=== PATIENT | female | born 1950 | race Caucasian/White ===

== ENCOUNTER 2016-10-03 14:35 | Emergency (ER) | payer MEDICARE, OTHER ==
[~2016-10-03] VITALS: Ht 165.1 cm; Wt 48.2 kg
[~2016-10-03 14:35] MED LIST: ADVAI250I PO; CITA20TA4 PO; COMBAER INH; LEVO.1 PO; LORA0.5T PO; LORTA5 PO
[2016-10-03 14:45] VITALS: BP 124/94; PULSE 138; RESP 28; TEMP 98.1; O2SAT 90
[2016-10-03 14:48] VITALS: BP 161/99; PULSE 106; RESP 18; TEMP 98.1; O2SAT 97
[2016-10-03] MEDS ORDERED: BUSP10TA PO (15:06)
[2016-10-03] MEDS ORDERED: LORA-373 PO (15:06)
[2016-10-03] MEDS ORDERED: PRED5TAB PO (15:06)
[2016-10-03] MEDS ORDERED: IPRAAER INH (15:06)
[2016-10-03] MEDS ORDERED: ADVA250A INH (15:06)
[2016-10-03] MEDS ORDERED: LEVA500T PO (15:06)
[2016-10-03] MEDS ORDERED: LORA-392 PO (15:15)
--- NOTE | 2016-10-03 15:15 | PD ---
HPI Chief Complaint: Anxiety Time Seen by Provider: 14:48 Travel History International Travel<30 days: No Contact w/Intl Traveler<30days: No Traveled to known affect area: No History of Present Illness HPI This 66-year-old female is complaining of anxiety. She says she has not slept for several days. She had been on 5 mg of lorazepam to 3 times a day. She was recently put on and told to stop her lorazepam. She's been having increased anxiety. She has a history of COPD. She does continue to smoke. She has not had lung for which she is followed by pulmonary. Patient is on prednisone and has been tapering her dose. She has noted easy bruising PFSH Past Medical History Asthma: No Anxiety: Yes Depression: Yes Cancer: No Cardiovascular Problems: No COPD: Yes Diabetes: No Endocrine: Yes Genitourinary: No Hepatitis: Yes (HEP B 20 YEARS AGO) Hiatal Hernia: No Immune Disorder: No Musculoskeletal: No Neurologic: No Psychiatric: No Reproductive: No Respiratory: Yes (EMPHYSEMA) Immunizations Current: No Sleep Apnea: No Thyroid Disease: Yes ?: Not Past Surgical History Abdominal Surgery: No AICD: No Cardiac Surgery: No Endocrine Surgery: No Eye Surgery: No Genitourinary Surgery: No Gynecologic Surgery: No Joint Replacement: No Oral Surgery: No Pacemaker: No Thoracic Surgery: No Tonsillectomy: Yes Other Surgery: Yes Social History Alcohol Use: Yes (OCC) Tobacco Use: Yes (2 - PPD) Substance Use: No Allergies-Medications (Allergen,Severity, Reaction): Coded Allergies: Penicillin (Verified Adverse Reaction, Severe, 01/13/14) Reported Meds & Prescriptions Reported Meds & Active Scripts Active Reported Levaquin (Levofloxacin) 500 Mg Tab 500 Mg PO DAILY Prednisone 5 Mg Tab 5 Mg PO DAILY Combivent Respimat Inh (Ipratropium-Albuterol Inh) 20-100 [facility]/Act Aero 1 Puff INH QID Advair Diskus Inh (Fluticasone-Salmeterol Inh) 250-50 Mcg/Blist Aer 1 Puff INH BID Rinse mouth after use. Buspirone (Buspirone HCl) 10 Mg Tab 10 Mg PO DAILY Lorazepam 0.5 Mg Tab 0.5 Mg PO Q8H PRN Review of Systems General / Constitutional: No: Fever, Chills Eyes: No: Diploplia HENT: No: Headaches Cardiovascular: No: Chest Pain or Discomfort Respiratory: Positive: Shortness of Breath Gastrointestinal: No: Vomiting, Diarrhea Genitourinary: No: Decreased Urinary Output Musculoskeletal: No: Myalgias, Arthralgias Neurologic: No: Weakness Endocrine: No: Heat Intolerance, Cold Intolerance Hematologic/Lymphatic: Positive: Easy Bruising Physical Exam Narrative GENERAL: Well-developed female SKIN: Warm and dry. HEAD: Atraumatic. Normocephalic. EYES: Pupils equal and round. No scleral icterus. No injection or drainage. ENT: No nasal bleeding or discharge. Mucous membranes pink and moist. NECK: Trachea midline. No JVD. CARDIOVASCULAR: Regular rate and rhythm. No murmur appreciated. RESPIRATORY: No accessory muscle use. Diminished breath sounds bilaterally GASTROINTESTINAL: Abdomen soft, non-tender, nondistended. Hepatic and splenic margins not palpable. MUSCULOSKELETAL: No obvious deformities. No clubbing. No cyanosis. No edema. NEUROLOGICAL: Awake and alert. No obvious cranial nerve deficits. Motor grossly within normal limits. Normal speech. PSYCHIATRIC: Appropriate mood and affect; insight and judgment normal. She is anxious Data Data Last Documented VS Vital Signs Date Time Temp Pulse Resp B/P Pulse Ox O2 Delivery O2 Flow Rate FiO2 10/03/16 14:48 98.1 106 18 161/99 97 MDM Medical Decision Making Medical Screen Exam Complete: Yes Emergency Medical Condition: Yes Medical Record Reviewed: Yes Differential Diagnosis Differential includes COPD exacerbation, anxiety, benzodiazepine withdrawal Narrative Course Patient's symptoms appear related to anxiety. They could be exacerbated by withdrawal. The BuSpar will not be effective for several days. I will prescribe some Ativan to use Diagnosis Primary Impression: Anxiety Scripts Lorazepam (Ativan)0.5 Mg Tab0.5 Mg PO Q8H PRN (ANXIETY AND/OR AGITATION) #20 TAB Ref 0 Prov:Roel Kumari MD 10/03/16 Disposition: DISCHARGE HOME Condition: Stable Roel Kumari MD Oct 03, 2016 15:15
== END 2016-10-03 15:28 | disposition home or self-care (01) ==
LOC: PHED 14:35
DX: F41.9 Anxiety disorder, unspecified (principal); F17.210 Nicotine dependence, cigarettes, uncomplicated; J44.9 Chronic obstructive pulmonary disease, unspecified
CPT/HCPCS: 99283

== ENCOUNTER 2017-09-26 08:49 | Day surgery (SDC) | payer OTHER ==
[~2017-09-26] VITALS: Ht 162.6 cm; Wt 42.3 kg
[~2017-09-26 08:49] MED LIST changes: +ADVA250A INH; -ADVAI250I PO; +BUSP10TA PO; -CITA20TA4 PO; -COMBAER INH; +IPRAAER INH; +LEVA500T PO; -LEVO.1 PO; +LORA-392 PO; -LORTA5 PO; +PRED5TAB PO
[2017-09-26 09:01] VITALS: BP 154/105; PULSE 93; RESP 20; TEMP 97.5; O2SAT 96
[2017-09-26] MEDS ORDERED: LEVO100T5 PO (09:15)
[2017-09-26] MEDS ORDERED: SERT-132 PO (09:15)
[2017-09-26] MEDS ORDERED: ASPI-516 CHEW (09:15)
[2017-09-26] MEDS ORDERED: FLUT1INH INH (09:15)
[2017-09-26] MEDS ORDERED: SODIUM CHLOR 0.45% 1000 ML INJ 1,000 ML IV SCH (09:30)
[2017-09-26 09:39] LABS: AUTOMATED NEUTROPHIL # 6.5 TH/MM3 (1.8-7.7); BASOPHIL # 0.1 TH/MM3 (0-0.2); BASOPHIL % 0.9 % (0.0-2.0); EOSINOPHIL # 0.1 TH/MM3 (0-0.4); HEMATOCRIT 37.9 % (35.0-46.0); HEMOGLOBIN 13.7 GM/DL (11.6-15.3); LYMPH % 23.3 % (9.0-44.0); LYMPHOCYTE # 2.3 TH/MM3 (1.0-4.8); MEAN CELL VOLUME 88.3 FL (80.0-100.0); MEAN CORPUSCULAR HEMOGLOBIN 31.9 PG (27.0-34.0); MEAN CORPUSCULAR HGB CONC 36.1 % (32.0-36.0); MEAN PLATELET VOLUME 6.5 FL (7.0-11.0); MONO % 9.8 % (0.0-8.0); PLATELET COUNT 301 TH/MM3 (150-450); RED BLOOD COUNT 4.29 MIL/MM3 (4.00-5.30); RED CELL DISTRIBUTION WIDTH 16.1 % (11.6-17.2)
[2017-09-26 09:51] LABS: PROTHROMBIN TIME - PATIENT 10.4 SEC (9.8-11.6)
[2017-09-26 10:01] LABS: BICARBONATE 28.7 MEQ/L (21.0-32.0); CALCIUM 9.1 MG/DL (8.5-10.1); CREATININE 0.74 MG/DL (0.50-1.00)
[2017-09-26] MEDS ORDERED: RESP: ALBUTEROL 2.5 MG/3 ML NEB (SCH) INH (11:00)
[2017-09-26] MEDS ORDERED: RESP: LIDOCAINE HCL 4% PF 5 ML NEB NEB SCH (11:00)
[2017-09-26] MEDS ORDERED: RESP: ALBUTEROL 2.5 MG/3 ML NEB (PRN) NEB (13:00)
[2017-09-26 13:45] VITALS: BP 128/83; PULSE 73; RESP 20; TEMP 98.5; O2SAT 99
--- NOTE | 2017-09-26 14:03 | RADRPT ---
EXAM DATE/TIME: 09/26/2017 13:32 [facility] COMPARISON: CHEST EXPIRATION ONLY, January 16, 2014, 13:20. CHEST SINGLE AP, January 15, 2014, 14:26. INDICATIONS : Post Bronchoscopy. MEDICAL HISTORY : Asthma. SURGICAL HISTORY : None. ENCOUNTER: Initial ACUITY: 1 day PAIN SCORE: 0/10 LOCATION: Bilateral chest FINDINGS: A single view of the chest demonstrates the lungs to be symmetrically hyperinflated with biapical sca rring basically unchanged from prior. On the left, there is an associated nodular density which is al so stable. On the right, there is a spade shaped density projecting over the area of scarring with th e inferior and lateral borders very sharply marginated and therefore, this may be on the skin surface . Heart size is normal. Osseous structures are intact. No pneumothorax. CONCLUSION: 1. Stable biapical scarring with an associated nodular density on the left which is also stable. This is all superimposed on baseline emphysematous changes. 2. Space shaped density projecting over the right hemithorax may be on the skin surface. Suggest exam ining the patient anteriorly and posteriorly and repeating the chest radiograph for confirmation. Shivam Blackwood MD on September 26, 2017 at 13:55 Board Certified Radiologist. This report was verified electronically.
[2017-09-26] MEDS ORDERED: DO NOT ADM ANY ANTICOAGULANT DRUGS PRN (14:15)
[2017-09-26] MEDS ORDERED: ACETAMINOPHEN 325 MG TAB PO SCH (14:15)
[2017-09-26 15:00] VITALS: BP 124/83; PULSE 74; RESP 17; O2SAT 98
--- NOTE | 2017-09-26 19:24 | EKG ---
Date Performed: 09/26/2017 Time Performed: 09:35:38 PTAGE: 67 years EKG: Sinus rhythm POSSIBLE LEFT ATRIAL ENLARGEMENT INDETERMINATE AXIS POSSIBLE RIGHT VENTRICULAR CONDUCTION DELAY LEFT POSTERIOR FASCICULAR BLOCK MODERATE ST DEPRESSION ABNORMAL ECG Since the prior tracing, there has be en no significant change PREVIOUS TRACING : 06/20/1995 12.03 DOCTOR: Jean-Pierre Cantu Interpretating Date/Time 09/26/2017 19:23:35
--- NOTE | 2017-09-26 20:53 | MP ---
cc: Danny RAMIREZ M.D.[facility] DATE OF SURGERY 09/26/17 PROCEDURE Fiberoptic bronchoscopy with brushings, biopsies, washings. PREOPERATIVE DIAGNOSIS Right upper lobe lung lesion. POSTOPERATIVE DIAGNOSIS Right upper lobe lung lesion and right middle lobe mucosal lesion ANESTHESIA General with intubation. SURGEON Dr. Madina Ramirez PROCEDURE AND FINDINGS The patient was intubated under general anesthesia following which the Olympus IT 180 bronchoscope was used to visualize the bronchi. The scope was advanced via the endotracheal tube into the trachea. The trachea and cassi appeared normal. The scope was then advanced into the right main stem, right upper lobe segmental bronchi. These bronchi demonstrated mild endobronchitis with mucoid secretions and mucosal ridging, but no endobronchial mass was seen. Brushings were done from the right upper lobe region for cytology and micro and saline washings and lavage were done. The scope was then advanced into the right middle lobe segmental bronchi. The right middle lobe segmental bronchi at its takeoff had a mucosal lesion which was smooth and invaginating into the lumen by about 3 mm. Biopsies were done from this area and washings were done from the right middle lobe region until clear. Minimal bleeding was observed and controlled with saline solution. Next, the right lower lobe segmental bronchi were visualized which demonstrated a few mucoid secretions and mucosal edema, but no endobronchial mass was seen. Washings were done from here and lavage was carried out. The scope was then advanced into the left main stem left upper lobe segmental bronchi. These bronchi demonstrated no gross endobronchial lesions. Saline washings were done. There was no evidence of bleeding. Next, the left lower lobe segmental bronchi were visualized which demonstrated no endobronchial lesions. Saline washings and lavage were done and the procedure was then terminated. The patient tolerated the procedure well. MD THOMAS Foster/ /12:50 PM /8:27 PM
== END 2017-09-26 15:30 | disposition home or self-care (01) ==
LOC: HROP 08:49 → HRIP 08:53 → HROP 15:30
DX: R91.1 Solitary pulmonary nodule (principal); B96.89 Other specified bacterial agents as the cause of diseases classified elsewhere; J45.909 Unspecified asthma, uncomplicated; J42 Unspecified chronic bronchitis; E03.9 Hypothyroidism, unspecified; R06.02 Shortness of breath; R94.31 Abnormal electrocardiogram [ECG] [EKG]; Z01.810 Encounter for preprocedural cardiovascular examination; Z01.818 Encounter for other preprocedural examination
CPT/HCPCS: 31623; 71045; 80048; 85025; 85610; 85730; 87015; 87070; 87071; 87102; 87116; 87185; 87205; 87206; 88112; 88305; 93005